=== PATIENT | female | born 1970 | race African-American/Black ===

== ENCOUNTER 2021-09-17 13:25 | Emergency (ER) | payer SELFPAY ==
[~2021-09-17] VITALS: Ht 149.9 cm; Wt 65.4 kg
[2021-09-17 13:27] VITALS: BP 101/64
--- NOTE | 2021-09-17 13:39 | NUR ---
PT AMB TO BED 2.
--- NOTE | 2021-09-17 13:44 | NUR ---
51 Y/O FEMALE C/O COUGH X 2 WEEKS WITH NAUSEA. PT WENT TO URGENT CARE LAST WEEK AND DX WITH BRONCHITIS. FLU& COVID TESTED NEGATIVE LAST WEEK. DENIES FEVER/CHILLS. DENIES N/V/D. PMH: BRONCHITIS ALLERGIES: PCN, GUAIFENESIN
[2021-09-17] MEDS ORDERED: BENZ150C2 PO ×2 (14:47→15:50)
[2021-09-17] MEDS ORDERED: CODE5SYR5 PO ×2 (14:47→15:50)
[2021-09-17 15:37] VITALS: BP 100/60
--- NOTE | 2021-09-17 15:38 | NUR ---
Patient discharged with v/s stable. Written and verbal after care instructions given and explained. Patient alert, oriented and verbalized understanding of instructions. Ambulatory with steady gait. All questions addressed prior to discharge. ID band removed. Patient advised to follow up with PMD. Rx of prometh-codein,benzonatate given. Patient educated on indication of medication including possible reaction and side effects. Opportunity to ask questions provided and answered.
== END 2021-09-17 15:37 | disposition home or self-care (01) ==
LOC: MED 13:25
DX: J40 Bronchitis, not specified as acute or chronic (principal); Z88.0 Allergy status to penicillin; Z88.1 Allergy status to other antibiotic agents
CPT/HCPCS: 99283